=== PATIENT | male | born 1960 | race Caucasian/White ===

== ENCOUNTER 2018-05-14 07:53 | Inpatient (IN) | payer BC ==
[~2018-05-14] VITALS: Ht 193 cm; Wt 128.6 kg
[2018-05-14] MEDS ORDERED: NITROGLYCERIN SINGLE TAB 0.4 MG SL ONE (08:27)
[2018-05-14] MEDS ORDERED: ASPIRIN 81 MG TABLET CHEW ONE (08:27)
--- NOTE | 2018-05-14 08:28 | NUR ---
IV ESTABLISHED AND BLOOD DRAWN. X RAY AT BEDSIDE.
[2018-05-14] MEDS ORDERED: NITROGLYCERIN SINGLE TAB 0.4 MG SL PRN (08:30)
[2018-05-14] MEDS ORDERED: SODIUM CHLORIDE FLUSH 10ML SYR IVF ONE (08:30)
[2018-05-14] MEDS ORDERED: ASPIRIN 81 MG TABLET CHEW PO ONE (08:30)
[2018-05-14 08:37] LABS: BASOPHILS # (AUTO) 0.03 x10^3/uL (0-0.1); BASOPHILS % (AUTO) 0 % (0-1); EOSINOPHILS # (AUTO) 0.07 x10^3/uL (0-0.4); EOSINOPHILS % (AUTO) 1 % (1-7); LYMPHOCYTES # (AUTO) 1.67 x10^3/uL (1-3.4); LYMPHOCYTES % (AUTO) 22 % (22-44); MD NO; MEAN CORPUSCULAR HEMOGLOBIN 31.4 pg (27.5-34.5); MEAN CORPUSCULAR HGB CONC 33.7 g/dL (33.2-36.2); MEAN CORPUSCULAR VOLUME 93.3 fL (81-97); MEAN PLATELET VOLUME 9.4 fL (7.4-10.4); MONOCYTES # (AUTO) 0.59 x10^3/uL (0.2-0.8); MONOCYTES % (AUTO) 8 % (2-9); NEUTROPHILS # (AUTO) 5.17 x10^3/uL (1.8-6.8); NEUTROPHILS % (AUTO) 69 % (42-75); PLATELET COUNT 223 x10^3/uL (130-400); RED BLOOD COUNT 5.97 x10^6/uL (4.38-5.82); RED CELL DISTRIBUTION WIDTH 13.4 % (9.4-14.8)
--- NOTE | 2018-05-14 08:42 | NUR ---
PT STATED THAT HE HAS HAD TIGHTNESS IN CHEST FOR 1 MONTH THAT GOT WORSE TODAY. REPORTS TINGLING IN LEFT ARM, SOB, AND BEING SWEATY. PT IS ALERT, ORIENTED, WITH NAD. PT IS CONNECTED TO THE MONITOR, CALL LIGHT WITHIN REACH.
--- NOTE | 2018-05-14 08:42 | NUR ---
PT STATED THAT NITRO HELPED HIM.
[2018-05-14 08:46] LABS: ALBUMIN 3.9 g/dL (3.4-5.0); ANION GAP 7 mmol/L (5-15); CALCIUM 9.4 mg/dL (8.5-10.1); CHLORIDE 107 mmol/L (98-107); CREATININE 1.11 mg/dL (0.7-1.3)
[2018-05-14] MEDS ORDERED: ASPI-496 PO (08:46)
[2018-05-14] MEDS ORDERED: METO25TA35 PO (08:46)
[2018-05-14] MEDS ORDERED: METOPROLOL 1 MG/ML, 5ML ONE ×3 (08:48→09:40)
[2018-05-14 08:49] LABS: TROPONIN I < 0.015 ng/mL (0.000-0.045)
[2018-05-14] MEDS: METOPROLOL 1 MG/ML, 5ML IVPush PRN ×3 (08:59→09:43)
--- NOTE | 2018-05-14 09:25 | NUR ---
PER MD GIVE ANOTHER 5MG LOPRESSOR IV.
--- NOTE | 2018-05-14 09:42 | NUR ---
PER MD GIVE ANOTHER 5 MG LOPRESSOR 5MG IV. THEN REPEAT EKG.
--- NOTE | 2018-05-14 09:51 | NUR ---
EKG AT BEDSIDE.
--- NOTE | 2018-05-14 09:56 | NUR ---
paged dr serrano for dr rose.
[2018-05-14] MEDS ORDERED: ADENOSINE 6 MG/2 ML ONE (10:08)
--- NOTE | 2018-05-14 10:18 | NUR ---
PER MD PULL 6MG AND 12 MG OF ADENSOSINE. INSULATION WORKER APPRENTICE AND MD AT BEDSIDE. TECH AT BEDSIDE.
--- NOTE | 2018-05-14 10:27 | NUR ---
PER GAS PIT WORKER GIVE 6MG ADENOSINE IV NOW. MEDICATION GIVEN. PER CARDIOLOGISTY PT HAS AFLUTTER. PLAN IS TO CARDIOVERT IN THE AM. PT IS ALERT, ORIENTED, WITH NAD. PT IS CONNECTED TO THE PADS AND MONITOR. CALL LIGHT WITHIN REACH.
[2018-05-14] MEDS ORDERED: APIXABAN 5 MG TABLET ONE (10:37)
[2018-05-14] MEDS: APIXABAN 5 MG TABLET PO SCH ×2 (10:39→21:04)
--- NOTE | 2018-05-14 10:55 | NUR ---
Pt is resting in bed, with eyes closed, respirations equal and non labored. NAD. Pt is connected to the monitor. Call light within reach.
[2018-05-14] MEDS ORDERED: ONDANSETRON ODT 4 MG PO PRN (11:30)
[2018-05-14] MEDS ORDERED: LABETALOL 5MG/ML, 20ML IVPush PRN (11:30)
[2018-05-14] MEDS ORDERED: DOCUSATE 100 MG CAPSULE PO PRN (11:30)
[2018-05-14] MEDS ORDERED: hydrALAzine 20 MG/ML, 1ML IVPush PRN (11:30)
[2018-05-14] MEDS ORDERED: ONDANSETRON 2MG/ML, 2ML IVPush PRN (11:30)
[2018-05-14] MEDS ORDERED: POLYETHYLENE GLYCOL 17 GM PACKET PO PRN (11:30)
[2018-05-14] MEDS ORDERED: BISACODYL 10 MG SUPP PR PRN (11:30)
[2018-05-14] MEDS ORDERED: ACETAMINOPHEN 325 MG TABLET PO PRN (11:30)
[2018-05-14] MEDS ORDERED: ZOLPIDEM 5MG TABLET PO PRN (11:30)
--- NOTE | 2018-05-14 12:03 | NUR ---
Pt resting in bed, with eyes closed, respirations equal and non labored. NAD. Pt is connected to the monitor. Call light within reach.
[2018-05-14 12:09] LABS: FREE T4 (FREE THYROXINE) 1.02 ng/dL (0.76-1.46); TROPONIN I 0.016 ng/mL (0.000-0.045)
[2018-05-14 12:39] LABS: HEMOGLOBIN A1C 5.8 % (4.2-6.3)
[2018-05-14] MEDS ORDERED: hydrALAzine 20 MG/ML, 1ML ONE (12:54)
--- NOTE | 2018-05-14 12:56 | NUR ---
ASSUMED CARE OF PT WHILE PRIMARY RN AT LUNCH. BLOOD PRESSURE 171/[id number]. HYDRALZINE GIVEN 10 MG.
--- NOTE | 2018-05-14 13:00 | NUR ---
RECEIVED BED AND WILL CALL REPORT WHEN PT BLOOD PRESSURE MORE STABLE
--- NOTE | 2018-05-14 13:31 | NUR ---
Report given to Iman ENRIQUEZ.
--- NOTE | 2018-05-14 13:37 | NUR ---
Pt ambulated to the bathroom with steady gait.
[2018-05-14 15:00] VITALS: BP 126/85
[2018-05-14 18:23] LABS: TROPONIN I 0.016 ng/mL (0.000-0.045)
[2018-05-14 18:40] VITALS: BP 134/87
[2018-05-14] MEDS: FAMOTIDINE 20 MG TABLET PO SCH (21:04)
[2018-05-15 01:38] VITALS: BP 120/89
[2018-05-15 05:31] LABS: BASOPHILS # (AUTO) 0.06 x10^3/uL (0-0.1); BASOPHILS % (AUTO) 1 % (0-1); EOSINOPHILS # (AUTO) 0.12 x10^3/uL (0-0.4); EOSINOPHILS % (AUTO) 2 % (1-7); LYMPHOCYTES # (AUTO) 2.18 x10^3/uL (1-3.4); LYMPHOCYTES % (AUTO) 29 % (22-44); MD NO; MEAN CORPUSCULAR HEMOGLOBIN 32.6 pg (27.5-34.5); MEAN CORPUSCULAR HGB CONC 34.9 g/dL (33.2-36.2); MEAN CORPUSCULAR VOLUME 93.3 fL (81-97); MEAN PLATELET VOLUME 9.6 fL (7.4-10.4); MONOCYTES # (AUTO) 0.83 x10^3/uL (0.2-0.8); MONOCYTES % (AUTO) 11 % (2-9); NEUTROPHILS # (AUTO) 4.36 x10^3/uL (1.8-6.8); NEUTROPHILS % (AUTO) 58 % (42-75); PLATELET COUNT 198 x10^3/uL (130-400); RED BLOOD COUNT 5.48 x10^6/uL (4.38-5.82); RED CELL DISTRIBUTION WIDTH 13.2 % (9.4-14.8)
[2018-05-15 05:39] LABS: ANION GAP 4 mmol/L (5-15); CALCIUM 8.8 mg/dL (8.5-10.1); CHLORIDE 106 mmol/L (98-107); CHOLESTEROL, TOTAL 178 mg/dL (140-239); CREATININE 0.99 mg/dL (0.7-1.3); TRIGLYCERIDES 182 mg/dL (50-200); VLDL CHOLESTEROL 36 mg/dL (0-25)
[2018-05-15 05:40] LABS: CHOL/HDL RATIO 4.3; HDL CHOL % 23 % (26-37); HDL CHOLESTEROL (DIRECT) 41 mg/dL (40-60); LDL CHOLESTEROL,CALCULATED 101 mg/dL (54-169); LDL/HDL RATIO 2.5 (0.5-3.0)
[2018-05-15] MEDS: METOPROLOL TARTRATE 25 MG TABLET PO SCH (07:33)
[2018-05-15] MEDS: ASPIRIN 81 MG TABLET EC PO SCH (07:33)
[2018-05-15] MEDS: FAMOTIDINE 20 MG TABLET PO SCH ×2 (07:33→21:14)
[2018-05-15] MEDS: APIXABAN 5 MG TABLET PO SCH ×2 (07:34→21:14)
[2018-05-15 08:30] VITALS: BP 155/109
[2018-05-15] MEDS ORDERED: PROPOFOL 10 MG/ML, 20ML ONE (12:33)
[2018-05-15 15:00] VITALS: BP 117/78
[2018-05-15 19:28] VITALS: BP 103/69
[2018-05-16 02:07] VITALS: BP 119/77
[2018-05-16 06:57] LABS: BASOPHILS # (AUTO) 0.06 x10^3/uL (0-0.1); BASOPHILS % (AUTO) 1 % (0-1); EOSINOPHILS # (AUTO) 0.08 x10^3/uL (0-0.4); EOSINOPHILS % (AUTO) 1 % (1-7); LYMPHOCYTES # (AUTO) 2.36 x10^3/uL (1-3.4); LYMPHOCYTES % (AUTO) 29 % (22-44); MD NO; MEAN CORPUSCULAR HEMOGLOBIN 32.3 pg (27.5-34.5); MEAN CORPUSCULAR HGB CONC 34.1 g/dL (33.2-36.2); MEAN CORPUSCULAR VOLUME 94.8 fL (81-97); MEAN PLATELET VOLUME 9.6 fL (7.4-10.4); MONOCYTES # (AUTO) 0.66 x10^3/uL (0.2-0.8); MONOCYTES % (AUTO) 8 % (2-9); NEUTROPHILS # (AUTO) 5.02 x10^3/uL (1.8-6.8); NEUTROPHILS % (AUTO) 61 % (42-75); PLATELET COUNT 193 x10^3/uL (130-400); RED CELL DISTRIBUTION WIDTH 13.4 % (9.4-14.8)
[2018-05-16 07:04] LABS: ANION GAP 5 mmol/L (5-15); CALCIUM 8.8 mg/dL (8.5-10.1); CHLORIDE 107 mmol/L (98-107); CREATININE 0.91 mg/dL (0.7-1.3)
[2018-05-16] MEDS: METOPROLOL TARTRATE 25 MG TABLET PO SCH (07:59)
[2018-05-16] MEDS: ASPIRIN 81 MG TABLET EC PO SCH (07:59)
[2018-05-16] MEDS: APIXABAN 5 MG TABLET PO SCH (07:59)
[2018-05-16] MEDS: FAMOTIDINE 20 MG TABLET PO SCH (07:59)
[2018-05-16] MEDS ORDERED: APIX5TAB PO (12:57)
== END 2018-05-16 14:32 | disposition home or self-care (01) | DRG 309 ==
LOC: ED 11:22 → EDIP 11:24 → 5SO 13:46 → DCLOUNGE 05-16 14:16
PROVIDERS: ADMIT Hospitalist; ATTEND Hospitalist
PROC: 5A2204Z Restoration of Cardiac Rhythm, Single (ICD-10-PCS; principal; 2018-05-15 12:00)
DX: I48.91 Unspecified atrial fibrillation (principal); I20.0 Unstable angina; D68.69 Other thrombophilia; I48.92 Unspecified atrial flutter; I45.10 Unspecified right bundle-branch block; I10 Essential (primary) hypertension; Z82.49 Family history of ischemic heart disease and other diseases of the circulatory system
CPT/HCPCS: 36415; 71045; 80048; 80061; 82040; 83036; 84439; 84443; 84484; 85025; 92960; 93005; 93306; 93312; 93321; 93325; G0378; J2704; J0360